=== PATIENT | male | born 1960 | race Hispanic/Latino ===

== ENCOUNTER 2017-07-25 13:57 | Emergency (ER) | payer BC, OTHER ==
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
[2017-07-25] MEDS ORDERED: IBUPROFEN 400 MG TAB ONE (16:53)
[2017-07-25] MEDS ORDERED: HYDROCODONE/APAP 7.5/325 MG TAB ONE (16:53)
== END 2017-07-25 17:03 | disposition home or self-care (01) ==
LOC: ER 13:57
DX: S43.122A Dislocation of left acromioclavicular joint, 100%-200% displacement, initial encounter (principal); V28.0XXA Motorcycle driver injured in noncollision transport accident in nontraffic accident, initial encounter
CPT/HCPCS: 99284

== ENCOUNTER 2022-11-26 10:52 | Emergency (ER) | payer OTHER ==
--- OUTSIDE RECORDS SUMMARY | 2022-11-26 10:55 | XMS REPORT | Continuity of Care Document ---
:1960 [facility] t Address [address] [facility] [address] [place] [address] Care Team Providers Name Role Phone Samuel Hollins Primary Care Physician Brennen RIVERS, Julia Attending Clinician HAM JOEL Attending Clinician Unavailable Abebe Ortega MD Attending Clinician Ham Joel DO Attending Clinician HAM JOEL Admitting Clinician Unavailable Ham Joel DO Admitting Clinician Payers Payer Name Policy Type Policy Number Effective Date Expiration Date S ource Problems Condition Condition Condition Status Onset Resolution Last Treating Co mments Source Name Details Category Date Date Treatment Clinician Date Stage 3 Stage 3 Disease Active Univers chronic chronic 11-21 ity of kidney kidney 00:00: [place] disease disease 00 Medical Branch Elevated Elevated Disease Active Unive rs LFTs LFTs 11-20 ity of 00:00: [place] 00 Medical Branch LBBB (left LBBB (left Disease Active U nivers bundle bundle 11-20 ity of branch branch 00:00: [place] block) block) 00 Medical Branch Dyslipidem Dyslipidem Disease Active U nivers ia ia 11-20 ity of 00:00: [place] 00 Medical Branch Family Family Disease Active Univers history of history of 11-20 [place] of premature premature [place] CAD CAD 00 [place] Elevated Elevated Disease Active Unive rs brain brain 11-20 ity of natriure[place] nat[place]ureti [place] peptide c peptide 00 Medi josué (BNP) (BNP) Branch level level Generalize Generalize Disease Active U nivers d d 11-19 [place] of abdominal abdominal 00[place] pain [facility] Allergies, Adverse Reactions, Alerts Allergy Allergy Status Severity Reaction(s) Onset Inactive Treating Comm ents Source Name Type Date Date Clinician NO KNOWN Drug Active Univers ALLERGIE Class ity of [facility] Social History Social Habit Start Date Stop Date Quantity Comments Source Gender identity Universit y [facility] Sexual orientation Univer sity of [facility] History of Social 2022-11-20 2022-11-20 Univers ity of function 00:00:00 00:00:00 [facility] Tobacco use and 2022-11-19 2022-11-19 Smokeless Universit y of exposure 00:00:00 00:00:00 tobacco non-user [facility] Sex Assigned At [birth year] Universit y of 00:00:00 00:00:00 [facility] Smoking Status Start Date Stop Date Source Never smoked tobacco [facility] Medications Ordered Filled Start Stop Current Ordering Indication Dosage Frequency Signature Comments Components Source Medication Medication Date Date Medication? Clinician (SIG) Name Name furosemide Yes 20mg 20 mg, Unive rs (LASIX) - Oral, ity of tablet 20 14:00: DAILY, [place] mg 00 First dose Medical on [facility] 11/22/22 at 0900, Until Discontinu ed, Routine furosemide 2022- Yes [id number] 20mg Take 1 Univers 20 mg 11-22- tablet by ity of tablet 00:00: 04:59 mouth in [place] 00 :00 [facility] for 30 days. furosemide 2022- Yes [id number] 20mg Take 1 Univers 20 mg -23 12- tablet by ity of tablet 00:00: 04:59 mouth in [place] 00 :00 [facility] for 30 days. furosemide 2022- No [id number] 20mg Take 1 Univers 20 mg -22 11- tablet by ity of tablet 00:00: 00:00 mouth in [place] 00 :00 [facility] for 30 days. pantoprazol Yes 40mg 40 mg, Univ ers e 11-21 Oral, ity of (PROTONIX) 20:00: DAILY, [place] EC tablet 00 First dose Medi josué 40 mg on [facility] 11/21/22 at 1500, Until Discontinu ed, Routine atorvastati 2022- No 10mg Take 1 Uni vers n 10 mg 11-21 tablet by ity of tablet 17:04: 00:00 mouth at [place] 09 :00 bedtime. Medical Branch docusate Yes 100mg 100 mg, Unive rs (COLACE) 11-21 Oral, ity of capsule 100 14:00: [place] 00 First dose Medical on [facility] Branch 11/21/22 at 0900, Until Discontinu ed, Routine lactulose Yes 15mL 15 mL, Univer s (CEPHULAC) 11-21 Oral, ity of solution 15 12:26: BIDPRN, Jose as mL 38 Starting Medical on [facility] Branch 11/21/22 at 0726, Until Discontinu ed, Routine, Constipati on pantoprazol 2022- Yes [id number] 40mg Take 1 Univers e 40 mg EC 11-21 tablet by ity of tablet 00:00: 04:59 mouth in [place] 00 :00 the Medical morning Branch for 30 days. pantoprazol 2022- Yes [id number] 40mg Take 1 Univers e 40 mg EC 11-21 tablet by ity of tablet 00:00: 04:59 mouth in [place] 00 :00 the Medical morning Branch for 30 days. pantoprazol 2022- No [id number] 40mg Take 1 Univers e 40 mg EC 11-21 tablet by ity of tablet 00:00: 00:00 mouth in [place] 00 :00 the Medical morning Branch for 30 days. furosemide 2022- No 40mg 40 mg, Univ ers (LASIX) 11-20 Slow IV ity of injection 22:30: 14:35 Push, BID [place] 40 mg 00 :01 MEALS, Medical First dose Branch on Wed11/20/22 at 1730, Until Discontinu ed, Routine gadobenate 2022- No [id number] .2mL/kg 12.22 mL Univers dimeglumine 7-21 07-21 (0.2 mL/kg i ty of (MULTIHANCE 14:30: 14:30 ?61.1 kg), [place] -20 mL) 00 :00 Intravenou Medica l injection s, ONCE, 1 Bran ch 12.22 mL dose, On Wed11/20/22 at 0930, Routine aspirin 2022-0 Yes 81mg 81 mg, Univers chewable 11-20 Oral, ity of tablet 81 14:00: DAILY, [place] mg 00 First dose Medical on Wed Branch 11/20/22 at 0900, Until Discontinu ed, Routine glucagon 2022-0 Yes 1mg 1 mg, Univers (GLUCAGEN 11-19 Intramuscu ity of DIAGNOSTIC 23:53: lar, PRN, [place] KIT) 08 Starting Medical injection 1 on [place] Branch 11/19/22 at 1853, Until Discontinu ed, MINOO, Blood Glucose < or = 70 mg/dL and patient is NPO, unable to swallow or has mental changes. dextrose 50 2022-0 Yes 25mL 25 mL, Univ ers % in water 11-19 Slow IV ity of (D50W) 23:53: Push, PRN, [place] injection 08 Starting Medica l 25 mL on [place] Branch 11/19/22 at 1853, Until Discontinu ed, MINOO, Blood Glucose < or = 70 mg/dL and patient is NPO, unable to swallow or has mental status changes. ondansetron 0 Yes 4mg 4 mg, Slow Univers (ZOFRAN 7-20 IV Push, ity of (PF)) 23:38: Q6HPRN, [place] injection 4 20 Nausea and Me dical mg Vomiting Branch (N/V), Starting on Wed11/19/22 at 1838
Do ses of ondansetro n 16 mg and above need to be administer ed via IV piggyback. For Dose >=24mg ECG monitoring is advisable.
enoxaparin 2022-0 Yes 40mg 40 mg, Unive rs (LOVENOX) -20 Subcutaneo ity of injection 22:00: [place], [place]ILY, [place] 40 mg 00 First dose Medical on [place] Branch 11/19/22 at 1700, Until Discontinu ed, Routine acetaminoph Yes 650mg 650 mg, Un mónica en 11-19 Oral, ity of (TYLENOL) 21:52: Q6HPRN, [place] tablet 650 12 Starting Medic al mg on [place] Branch 11/19/22 at 1652, Until Discontinu ed, Routine, Pain (scale 1-3) iopamidol 2022- No [id number] 65mL 65 mL, Univers (ISOVUE 11-19 Intravenou ity o f 370-500 mL) 20:49: 20:49 s, ONCE, 1 [place] injection 00 :00 dose, On Medica l 65 mL [place] Branch 11/19/22 at 1600, Routine NaCl 0.9% No 1000mL at 999 Uni vers (NS) bolus 11-19 mL/hr, ity of infusion 20:00: 22:23 1,000 mL, Jose as 1,000 mL 00 :00 IV Medical Infusion, Branch ONCE, 1 dose, On [place]n 11/19/22 at 1500, STAT Vital Signs Vital Name Observation Time Observation Value Comments Source Systolic blood 2022-11-22 00:07:00 144 mm[Hg] Univer sity of pressure [facility] Diastolic blood 2022-11-22 00:07:00 79 mm[Hg] [facility] Heart rate 2022-11-22 00:07:00 50 /min [facility] Body temperature 2022-11-22 00:06:00 36.72 [facility] Respiratory rate 2022-11-22 00:06:00 [facility] Oxygen saturation in 2022-11-22 00:06:00 99 /min [facility] Arterial blood by [facility] Pulse oximetry Branch Body weight 2022-11-20 08:22:00 61.1 kg [facility] BMI 2022-11-20 08:22:00 22.42 kg/m2 [facility] Body height 2022-11-19 23:25:00 165.1 cm [facility] Procedures Procedure Date / Time Performing Clinician Source Performed N-TERMINAL PRO-BNP 2022-11-21 09:48:00 [place] 2022-11-21 09:48:00 Zulay Thomas [facility] MAGNESIUM 2022-11-21 09:[facility] 2022-11-21 09:48:00 Ynes Bhargav [facility] ([id number]) (ALB,T.PRO,BILI Medical Branch T,BU/BC,ALT,AST,ALK PHOS) BASIC METABOLIC PANEL 2022-11-21 09:48:00 Zulay Thomas [facility] (NA, K, CL, CO2, GLUCOSE, Medica l Branch BUN, CREATININE, CA) CBC WITH DIFF 2022-11-21 09:48:[facility] (AUTOMATED) 2022-11-20 21:28:00 Ham Joel [facility] TRANSTHORACIC ECHO (TTE) 2022-11-20 18:26:00 Ham Joel [facility] POCT GLUCOSE (AUTOMATED) 2022-11-20 16:50:00 Ham Joel [facility] POCT GLUCOSE (AUTOMATED) 2022-11-20 12:47:00 Ham Joel [facility] LIPID PANEL ([id number])(TOTAL 2022-11-20 11:14:00 Edith Alcantar [facility] TRIGLYCERIDES, HDL) ALPHA FETOPROTEIN 2022-11-20 11:14:00 Edith Alcantar [facility] CBC WITH DIFF 2022-11-20 11:14:[address] [facility] N-TERMINAL PRO-BNP 2022-11-20 11:14:00 Br[facility] [place] [facility] CANCER ANTIGEN-GI (CA 2022-11-20 11:14:00 Edith Alcantar [facility] 19-9) Medical Branch LIPASE 2022-11-20 11:14:[address] [facility] THYROID STIMULATING 2022-11-20 11:14:00 Brisa Horner [facility] [place] HORMONE [facility] COMP. METABOLIC PANEL 2022-11-20 11:14:00 Edith Alcantar [facility] ([id number]) Medical Branch TROPONIN I 2022-11-20 08:27:00 Ham Joel [facility] POCT GLUCOSE (AUTOMATED) 2022-11-20 02:49:00 Ham Joel [facility] TROPONIN I 2022-11-20 00:38:00 Ham Joel [facility] POCT GLUCOSE (AUTOMATED) 2022-11-19 23:50:00 Ham Joel [facility] CT ABDOMEN PELVIS W 2022-11-19 20:58:00 Abebe Ortega [facility] CONTRAST [facility] XR CHEST 1 VW 2022-11-19 20:32:00 Abebe Ortega [facility] HB ECG ROUTINE & RHYTHM 2022-11-19 20:05:31 Abebe Ortega [facility] STRIP [facility] COVID-19 (ID NOW RAPID 2022-11-19 20:00:00 Abebe Ortega [facility] TESTING) Medical Branch LAB ONLY COVID 2022-11-19 20:00:00 Abebe Ortega [facility] URINALYSIS 2022-11-19 20:00:00 Abebe Ortega [facility] N-TERMINAL PRO-BNP 2022-11-19 19:50:00 Abebe Ortega [facility] Medical Branch LIPASE 2022-11-19 19:50:00 Abebe Ortega [facility] TROPONIN I 2022-11-19 19:50:00 Abebe Ortega [facility] COMP. METABOLIC PANEL 2022-11-19 19:50:00 Abebe Ortega [facility] ([id number]) Medical Branch CBC WITH DIFF 2022-11-19 19:50:00 Abebe Ortega [facility] GLYCOSYLATED HEMOGLOBIN 2022-11-19 19:50:00 Ham Joel [facility] (A1C) [facility] NOTICE OF PRIVACY 2022-11-19 18:59:35 Doctor Unassigned, [facility] PRACTICES [facility] CONSENT/REFUSAL FOR 2022-11-19 18:57:40 Doctor Unassigned, [facility] DIAGNOSIS AND TREATMENT [facility] Encounters Start End Encounter Admission Attending Care Care Encounter Source Date/Time Date/Time Type Type Clinicians Facility Department ID 2022-11-23 2022-11-23 Telephone Brennen [facility] [id number] [facility] 00:00:00 00:00:00 [id number] [id number] Va dical [facility] 059 [facility] 2022-11-19 2022-11-21 Outpatient X MARYCRUZ [facility] [id number] 818 [facility] 14:06:00 20:20:00 HAM [facility] 2022-11-19 2022-11-21 Emergency Abebe Ortega [facility] [id number] [facility] 14:06:00 20:20:00 Ham Joel [id number] [facility] [id number] [facility] [id number] [address] Results Test Description Test Time Test Comments Results Result Comments Source POCT GLUCOSE (AUTOMATED) 2022-11-20 21:29:31 Test Item Value Reference Range Interpretation Comme nts POCT GLU (test code = 3151923567) 77 mg/dL 70-110 Lab Interpretation (test code = 76829-5) Normal [facility] [id number] 16:52:19 Test Item Value Reference Range Interpretation Comments AFP (test code = 1.4 ng/mL <=7.5 [id number]) ABDELRAHMAN (test code = ABDELRAHMAN) Biotin has been reported to cause a negative bias, interpret results relative to patient's use of biotin. Lab Interpretation (test Normal code = 39989-8) [facility]2022-11-20 16:50:51 Test Item Value Reference Range Interpretation Comments POCT GLU (test code = 9048866043) 81 mg/dL 70-110 Lab Interpretation (test code = Normal 07136-8) [facility] ANTIGEN-GI (CA 19-9)2022-11-20 16:17:00 Test Item Value Reference Range Interpretation Comments CA 19-9 (test code = 21.5 U/mL 0.0-35.0 4629229732) ABDELRAHMAN (test code = ABDELRAHMAN) Biotin has been reported to cause a negative bias, interpret results relative to patient's use of biotin. Lab Interpretation (test Normal code = 00061-3) [facility] STIMULATING [id number] 13:36:54 Test Item Value Reference Range Interpretation Comments TSH (test code = 2.86 See_Comment [Automated message] [id number]) The system [employer] generated this result transmitted ref erence range: 0.45 - 4 .70 mIU/L. The refe rence range was not u sed to interpret this result as normal/abnor mal. Lab Interpretation (test Normal code = 66996-3) [facility] [id number] 13:15:14 Test Item Value Reference Range Interpretation Comments NT-proBNP (test code = 2730 pg/mL <=125 H 53623-5) ABDELRAHMAN (test code = ABDELRAHMAN) Positive: Heart Failure Likely Lab Interpretation (test Abnormal code = 94724-8) [facility])2022-11-20 12:48:46 Test Item Value Reference Range Interpretation Comments POCT GLU (test code = 0022692167) 77 mg/dL 70-110 Lab Interpretation (test code = Normal 53245-1) [facility] ([id number])(TOTAL CHOLESTEROL, TRIGLYCERIDES, HDL)2022-11-20 12:02:30 Test Item Value Reference Range Interpretation Comments CHOL (test code = 4413829970) 111 mg/dL 120-200 L HDL (test code = 9396734501) 17 mg/dL >=40 L HDLC RATIO (test code = 7691409169) 6.5 <=5.0 H TRIG (test code = 0347235631) 121 mg/dL 30-170 LDL CHOL (test code = 55837-8) 70 mg/dL <=160 VLDL (test code = 6313743166) 24 mg/dL 5-60 Lab Interpretation (test code = Abnormal 00338-1) [facility] MET[facility]OLIC PANEL (80999)2022-11-20 12:02:10 Test Item Value Reference Range Interpretation Comments NA (test code = 140 mmol/L 135-145 0096054337) K (test code = 4.4 mmol/L 3.5-5.0 6970725666) CL (test code = 108 mmol/L 98-108 8436311776) CO2 TOTAL (test code = 26 mmol/L 23-31 4362231122) AGAP (test code = 6 2-16 0207354079) BUN (test code = 25 mg/dL 7-23 H 9623765591) GLUCOSE (test code = 89 mg/dL 70-110 0227931850) CREATININE (test code = 1.55 mg/dL 0.60-1.25 H 9868225533) TOTAL BILI (test code = 0.4 mg/dL 0.1-1.3 1367462846) CALCIUM (test code = 8.6 mg/dL 8.6-10.6 9619929696) T PROTEIN (test code = 6.8 g/dL 6.3-8.2 1764880735) ALBUMIN (test code = 3.0 g/dL 3.5-5.0 L 6653787314) ALK PHOS (test code = 112 U/L 34-122 3409555745) ALTv (test code = 52 U/L 5-50 H 1742-6) AST(SGOT) (test code = 42 U/L 13-40 H 2071337544) eGFR (test code = 45.8 mL/min/1.73m2 4356295821) ABDELRAHMAN (test code = ABDELRAHMAN) Association of Glomerular Filtration Rate (GFR) and Staging of Kidney Disease* + --+ --+ ------+| GFR (mL/min/1.73 m2) ?| With Kidney Damage ?| ?Without Kidney Damage+ --------+ --------+ +| ?>90 ?| ?Stage one ?| ? Normal ?+ ---+ ---+ -------+| ?60-89 ?| ?Stage two ?| ? Decreased GFR ? + --+ --+ ------+| ?30-59 ?| ?Stage three ?| ? Stage three ? + --+ --+ ------+| ?15-29 ?| ?Stage four ? | ? Stage four ?+ ---+ ---+ -------+| ?<15 (or dialysis) ? ?| ?Stage five ? | ? Stage five ?+ ---+ ---+ -------+ *Each stage assumes the associated GFR level has been in effect for at least three months. ?Stages 1 to 5, with or without kidney disease, indicate chronic kidney disease. Notes: Determination of stages one and two (with eGFR >59mL/min/1.73 m2) requires estimation of kidney damage for at least three months as defined by structural or functional abnormalities of the kidney, manifested by either:Pathological abnormalities or Markers of kidney damage (including abnormalities in the composition of the blood or urine or abnormalities in imaging tests). Lab Interpretation Abnormal (test code = 85380-9) [facility] 12:01:45 Test Item Value Reference Range Interpretation Comments LIPASE (test code = 5834268022) 498 U/L 0-220 H Lab Interpretation (test code = Abnormal 03800-9) [facility] WITH [id number] 11:50:27 Test Item Value Reference Range Interpretation Comments WBC (test code = 11.54 See_Comment H [Automated 6690-2) message] The sy stem which generated this result transmitted reference range : 4.20 - 10.70 10*3/?L. The reference range was not used to interpret this result as normal/abnormal . RBC (test code = 3.45 See_Comment L [Automated 369-8) message] The sy stem which generated this result transmitted reference range : 4.26 - 5.52 10*6/?L. The reference range was not used to interpret this result as normal/abnormal . HGB (test code = 11.3 g/dL 12.2-16.4 L 718-7) HCT (test code = 32.9 % 38.4-49.3 L 4544-3) MCV (test code = 95.4 fL 81.7-95.6 787-2) MCH (test code = 32.8 pg 26.1-32.7 H 785-6) MCHC (test code = 34.3 g/dL 31.2-35.0 786-4) RDW-SD (test code = 48.1 fL 38.5-51.6 64611-2) RDW-CV (test code = 13.6 % 12.1-15.4 788-0) PLT (test code = 396 See_Comment H [Automated 777-3) message] The sy stem which generated this result transmitted reference range : 150 - 328 10*3/ ?L. The reference r raymon was not used to interpret this result as normal/abnormal . MPV (test code = 10.1 fL 9.8-13.0 46506-6) NRBC/100 WBC (test 0.0 See_Comment [Automat ed code = 1031702964) message] The system which generated this result transmitted reference range : 0.0 - 10.0 /100 WBCs. The refer ence range was not u sed to interpret th is result as normal/abnormal . NRBC x10^3 (test code See_Comment [Auto mated = 6888890971) message] The s ystem which generated this result transmitted reference range : 10*3/?L. The reference range was not used to interpret this result as normal/abnormal . GRAN MAT (NEUT) % 76.3 % (test code = 770-8) IMM GRAN % (test code 0.30 % = 1272730163) LYMPH % (test code = 10.7 % 736-9) MONO % (test code = 9.3 % 5905-5) EOS % (test code = 2.5 % 713-8) BASO % (test code = 0.9 % 706-2) GRAN MAT x10^3(ANC) 8.80 10*3/uL 1.99-6.95 H (test code = 3049993944) IMM GRAN x10^3 (test 0.04 10*3/uL 0.00-0.06 code = 0340293845) LYMPH x10^3 (test code 1.24 10*3/uL 1.09-3.23 = 731-0) MONO x10^3 (test code 1.07 10*3/uL 0.36-1.02 H = 742-7) EOS x10^3 (test code = 0.29 10*3/uL 0.06-0.53 711-2) BASO x10^3 (test code 0.10 10*3/uL 0.01-0.09 H = 704-7) Lab Interpretation Abnormal (test code = 09476-7) [facility] GLUCOSE (AUTOMATED)2022-11-20 02:50:44 Test Item Value Reference Range Interpretation Comments POCT GLU (test code = 6323033101) 125 mg/dL 70-110 H Lab Interpretation (test code = Abnormal 26056-0) [facility] [id number] 02:00:05 Test Item Value Reference Range Interpretation Comments TROPONIN I (test code = 0.012 ng/mL <=0.034 3708019822) ABDELRAHAMN (test code = ABDELRAHMAN) Reference (Normal) Range (defined by the 99th percentile reference limit): <= 0.034 ng/mL Note: Cardiac troponin begins to rise 3-4 hours after the onset of ischemia. Repeat in 4-6 hours if the sample was drawn within 3-4 hours of the onset of the symptom and found normal. Diagnosis of myocardial injury is made with acute changes in cTn concentrations with at least one serial sample above the 99th percentile upper reference limit (URL), taken together with the patient's clinical presentation. Biotin has been reported to cause a negative bias, interpret results relative to patient's use of biotin. Lab Interpretation Normal (test code = 97590-6) [facility] GLUCOSE (AUTOMATED)2022-11-19 23:51:06 Test Item Value Reference Range Interpretation Comments POCT GLU (test code = 5356877806) 68 mg/dL 70-110 L Lab Interpretation (test code = Abnormal 73159-6) [facility] Consult Notes Date/Time Note Provider Source 2022-11-20 07:36:36-00:00 Associated Order(s): CONSULT CARDIOLOG Y [facility] - Health Formatting of this note is different from the or iginal. [facility] Cardiology Consult Note Patient: Génesis Hill Date of : 1960 Date of service: 11/20/2022 Primary Care Physician: Samuel Arevalo CHIEF COMPLAINT: Chief Complaint Patient presents with Abdominal Pain HISTORY OF PRESENT ILLNESS: Génesis Hill is a 62 yea r old male presented to the ER for evaluation for abdominal pain. History from patient. Patient seen and examined in the room. Pertinent cardiac related history reviewed from chart Presented to ER with complaints of abdominal ramesh n. Patient had lab work-up done by his primary care provider, Dr. Arevalo. Patient was found to have mildly elevated liver function testing. Patient was also found to have generalized weakness and abdominal discomfort along with some w eight loss and anorexia that has been worsening over the last few weeks. In the emergency room, patient was found to have an elevated BNP level. Patient denies history of alcohol abuse. SMILEY which class II. No chest pain at rest. No PN D or orthopnea. No pedal edema. No exertional palpitations or palpitations at rest. No syncopal attacks. Previous Cardiac Studies: IMAGING - I personally reviewed, pertinent resul ts as below: Relevant cardiac labs reviewed. Labs dated 11/20/2022 reviewe d from the cardiac standpoint shows potassium stable at 4.4, creatinine mildly elevated 1.55, NT-proBNP elevated at 2130, LFTs elevated with along with elevated lipase. Hemoglobin mildly reduced bu t stable 11.3, platelet count elevated mildly at 396. EKG dated 11/19/2022 3 shows sinus rhythm,, left bundle branch block pattern. No prior EKG available for comparison. Chest x-ray dated 11/19/2022 reviewed no evidence of any heart failure pattern. CT abdomen shows evidence of vascular calcification in the abdominal aortic vessels. PAST MEDICAL HISTORY History reviewed. No pertinent past medical hist ory. History reviewed. No pertinent surgical history. No family history on file. SOCIAL HISTORY Social History Socioeconomic History Marital status: Tobacco Use Smoking status: Never Smokeless tobacco: Never ALLERGIES No Known Allergies MEDICATIONS Current Discharge Medication List STOP taking these medications atorvastatin 10 mg tablet Comments: Reason for Stopping: Current Facility-Administered Medications: acetaminophen (TYLENOL) tab let 650 mg, 650 mg, Oral, Q6HPRN, Ham Joel DO aspirin chewable tablet 81 mg, 81 mg, Oral, DIANE LY, Ham Joel DO dextrose 50 % in water (D50 W) injection 25 mL, 25 mL, Slow IV Push, PRN, Ham Joel DO enoxaparin (LOVENOX) inject ion 40 mg, 40 mg, Subcutaneous, DAILY, Ham Joel DO, 40 mg at 11/19/22 1843 glucagon (GLUCAGEN DIAGNOST IC KIT) injection 1 mg, 1 mg, Intramuscular, PRN, Ham Joel DO ondansetron (ZOFRAN (PF)) i njection 4 mg, 4 mg, Slow IV Push, Q6HPRN, Ham Joel DO, 4 mg at 11/19/22 1843 Sliding Scale Insulin - Lis pro (HumaLOG), , Subcutaneous, TID MEALS+HS, Ham Joel DO REVIEW OF SYSTEMS: Comprehensive 10-system revi ew was conducted and were negative except for what's noted in the HPI. The following systems were reviewed: Constitutional, cardiovascular, respiratory, gastrointestinal, gen itourinary, musculoskeletal, neurologic, psychiatric, endocrinological, and hematological. PHYSICAL EXAMINATION: Vitals: 11/19/22 1825 11/19/22 1940 11/19/22 2332 11/20 0322 BP: 138/76 109/58 134/74 Pulse: 62 59 70 Resp: 16 16 18 Temp: 36.8 ?C (98.2 ?F) 36.9 ?C (98.5 ?F) TempSrc: SpO2: 98% 98% 95% Weight: 56.7 kg (125 lb) 61.1 kg (134 lb 11.2 oz ) Height: 1.651 m (5' 5") General: no apparent distress HEENT: normocephalic atraumatic Neck: supple, no lymphadenopathy, no bruits, no JVD Lungs: clear to auscultation bilaterally. No wheezes or rhonchi. No increased work of breathing. Cardio: Regular rate and rhythm, S1&S2 normal, n o murmurs, rubs or gallops Abdomen: soft; non-tender; non-distended; normoa ctive bowel sounds. : not examined Rectal: not examined Extremities: no clubbing, cyanosis, or edema. Skin: no rashes, no visible lesions. Neuro: no gross focal deficits LABS - Reviewed pertinent labs as below: CBC BMP PT/INR WBC (10*3/?L) Date Value 11/20/2022 11.54 (H) NA (mmol/L) Date Value 11/20/2022 140 No results found for: "PT" PLT (10*3/?L) Date Value 11/20/2022 396 (H) K (mmol/L) Date Value 11/20/2022 4.4 No results found for: "PTINR" HGB (g/dL) Date Value 11/20/2022 11.3 (L) BUN (mg/dL) Date Value 11/20/2022 25 (H) HCT (%) Date Value 11/20/2022 32.9 (L) CREATININE (mg/dL) Date Value 11/20/2022 1.55 (H) LIPID PROFILE GLUCOSE (mg/dL) Date Value 11/20/2022 89 CHOL (mg/dL) Date Value 11/20/2022 111 (L) TSH LDL CHOL (mg/dL) Date Value 11/20/2022 70 No results found for: "TSH" CARDIAC ENZYMES HDL (mg/dL) Date Value 11/20/2022 17 (L) No results found for: "CK" TRIG (mg/dL) Date Value 11/20/2022 121 LFTs No results found for: "CKMB" AST(SGOT) (U/L) Date Value 11/20/2022 42 (H) TROPONIN I (ng/mL) Date Value 11/20/2022 0.013 ALTv (U/L) Date Value 11/20/2022 52 (H) No results found for: "BNP" LDL CHOL (mg/dL) Date Value 11/20/2022 70 Recent Labs 11/20/22 0327 TROPNI 0.013 Recent Labs 11/20/22 0614 TRIG 121 LDL CHOL (mg/dL) Date Value 11/20/2022 70 NT-proBNP (pg/mL) Date Value 11/19/2022 2,420 (H) ASSESSMENT/PLAN Principal Problem: Generalized abdominal pain Active Problems: Elevated LFTs LBBB (left bundle branch block) Dyslipidemia Family history of premature CAD Elevated brain natriuretic peptide (BNP) level Elevated NT-proBNP: Serial troponins x2 were negative. Recommend Echo to assess to EF and wall motion c hanges. Continue with IV Lasix 40 twice daily. Repeat NT -proBNP in a.m. tomorrow. Telemetry reviewed. No signi ficant arrhythmias noted. Continue telemetry monitoring If echocardiogram shows pres erved LV systolic function, then will plan for outpatient Lexiscan stress test. If echo shows drop in LVEF, then would need a coronary angiogram based upon the findings of the MRI abdomen. Relevant cardiac labs reviewed. Labs dated 11/20/2022 reviewe d from the cardiac standpoint shows potassium stable at 4.4, creatinine mildly elevated 1.55, NT-proBNP elevated at 2130, LFTs elevated with along with elevated lipase. Hemoglobin mildly reduced bu t stable 11.3, platelet count elevated mildly at 396. EKG dated 11/19/2022 3 shows sinus rhythm,, left bundle branch block pattern. No prior EKG available for comparison. Chest x-ray dated 11/19/2022 reviewed no evidence of any heart failure pattern. CT abdomen shows evidence of vascular calcification in the abdominal aortic vessels. Recent Labs 11/19/22 1938 11/20/22 0327 TROPNI 0.012 0.013 NT-proBNP (pg/mL) Date Value 11/19/2022 2,420 (H) New onset LBBB no prior EKG available for compar rafi. Denies history of any hypertension. If echocardiogram shows pres erved LV systolic function, then will plan for outpatient Lexiscan stress test. If echo shows drop in LVEF, then would need a coronary angiogram based upon the findings of the MRI abdomen. Dyslipidemia/family history of premature CAD: Home dose of Lipitor 10 mg daily. Currently on hold due to elevated LFTs. Goal LDL less than 70. LDL CHOL (mg/dL) Date Value 11/20/2022 70 Last Two A1C Results ([facility]/LC, POCT, [facility]) Recent Labs 11/19/22 1450 HGBA1C 5.2 Elevated LFTs: Rx/work-up as per primary team. My diagnostic impression and treatment plans were discussed at length with the patient and family member present. Thank you for allowing us to participate in the care of Génesis Hill. If you have any questions or concerns please feel free to call our office at [phone]. I would be happy to be of further assistance for Génesis Hill wellbeing. Voice recognition software [employer] as been used to create portions of this document. An attempt to proofread has been made to minimize errors. Please do not hesitate to call with any questions. Franklin Horner MD [employer], Division of Cardiology [facility] History and Physical Notes Date/Time Note Provider Source 2022-11-19 Formatting of this note is different fro m the original. IM-INTERNAL MEDICINE [facility] 23:14:24-00:00 [facility] Hospitalist Admission H&P STAFF Date of Service: 11/19/2022 CHIEF COMPLAINT: Abdominal pain; weakness; CP HISTORY OF PRESENT ILLNESS Génesis Hill is a 62 yea r old male who presents with complaints of abdominal pain. Patient had lab work-up done by his primary care provider, Dr. Arevalo. Patient was found to have mildly elevated lyle er function testing. Patient was advised to stop taking Lipitor on Sundays. Patient was also found to have generalized weakness and abdominal discomfort along with some weight loss and anorexia that has been worsening over the las t few weeks. Patient's has been persistent about trying to figure out what is going on with him. Patient was going to order a CT scan of the abdomen. This was supposed t o be done as an outpatient [facility] because of insurance purposes they were not able to get this done in [place]. Patient's primary care provider recommended patient get admitted but since the [facility] not take [facility] insurance he came to [facility] for admission. In the emergency room, patient was found to have an elevated BNP level. Patient's lipase was also elevated. Once again his liver function te sting is mildly elevated as well. Patient denies history of alcohol abuse. Patient does not have gallstones on CT imaging. We will check patient's lipid profile and monitor p atient's triglycerides. MRI imaging of the pancreas as well as abdominal ultrasound and echocardiogram will be obtained. Further work-up can be done as an outpatient. PAST MEDICAL HISTORY Hyperlipidemia PAST SURGICAL HISTORY History reviewed. No pertinent surgical history. ALLERGIES No Known Allergies MEDICATIONS Current home medication list reviewed: Current Discharge Medication List STOP taking these medications atorvastatin 10 mg tablet Comments: Reason for Stopping: FAMILY HISTORY No family history on file. SOCIAL HISTORY Social History Socioeconomic History Marital status: Tobacco Use Smoking status: Never Smokeless tobacco: Never REVIEW OF SYSTEMS 10 systems negative except per HPI PHYSICAL EXAMINATION BP 138/76 | Pulse 62 | Temp 36.8 ?C (98.2 ?F) | Resp 16 | Ht 1.651 m (5' 5") | Wt 56.7 kg (125 lb) | SpO2 98% | BMI 20.80 kg/m? General: No acute distress HEENT: Normal oral mucosa, anicteric sclerae, NC AT Cardiovascular: RRR Lungs: Symmetric expansion, CTAB Abdomen: Soft, NTND Musculoskeletal: No synovitis, normal muscle mas s Genitourinary: Normal Skin: No rash, lesions Neuro: AAOx3, no focal deficits Psych: Normal affect LABS - reviewed pertinent labs as below: CBC BMP PT/INR WBC (10*3/?L) Date Value 11/19/2022 11.88 (H) NA (mmol/L) Date Value 11/19/2022 139 No results found for: "PT" RBC (10*6/?L) Date Value 11/19/2022 3.46 (L) K (mmol/L) Date Value 11/19/2022 4.1 No results found for: "PTINR" PLT (10*3/?L) Date Value 11/19/2022 454 (H) CALCIUM (mg/dL) Date Value 11/19/2022 8.9 HGB (g/dL) Date Value 11/19/2022 11.0 (L) CL (mmol/L) Date Value 11/19/2022 104 aPTT HCT (%) Date Value 11/19/2022 32.3 (L) BUN (mg/dL) Date Value 11/19/2022 23 No results found for: "APTTPAT" CREATININE (mg/dL) Date Value 11/19/2022 1.57 (H) IMAGING - reviewed, pertinent results as below: Hospital Encounter on 11/19/22 CT ABDOMEN PELVIS W CONTRAST Narrative ORDERING PROVIDER: ABEBE ORTEGA HISTORY: Abdominal distension TECHNIQUE: Contiguous axial CT images of the abd omen and pelvis performed after administration of IV contrast. Coronal and sagittal reformats generated. CT performed according to ALARA (as l ow as reasonably achievable) principles. TECHNICAL LIMITATIONS: None. COMPARISON: None. FINDINGS: Included lung bases: Mild bibasilar linear atele ctasis/scar with superimposed dependent atelectasis. No basilar c onsolidation or pleural effusion. Normal heart size. Trace inferior vidal cardial fluid. Liver: Unremarkable. Gallbladder and Bile Ducts: Unremarkable gallbla dder. No biliary ductal dilation. Pancreas: Unremarkable CT appearance. Spleen: Unremarkable. Adrenals: No discrete nodule. Kidneys and Ureters: Unremarkable kidneys. No ur eteral stones or hydroureteronephrosis. GI Tract: Unremarkable appearance of the stomach , small and large bowel. Unremarkable appendix. Pelvis: Apparent mild circumferential urinary bl adder wall thickening is attributed to underdistension. Prostate is not s ignificantly enlarged and contains several coarse calcifications. Mesentery/Peritoneum: No free air. Fluid: Trace pelvic free fluid is nonspecific bu t considered an unusual finding for a male. Lymph nodes: No pathologic adenopathy. Vasculature: Scattered atherosclerotic vascular calcifications. No abdominal aortic aneurysm. Bones: No acute osseous abnormality. Chronic cinda ateral L5 pars defects with grade 1 spondylolisthesis. Impression 1. No acute process identified. No bowel obstru ction. 2. Atherosclerosis. 3. Chronic L5 pars defects with grade 1 spondylo listhesis. RL: [id number] Electronically signed by Jose Sims DO at 023 4:34 PM XR CHEST 1 VW Narrative Indication: chest pain Comparison: None RL: [id number] ORDERING PHYSICIAN: ABEBE ORTEGA TECHNIQUE: Single view of the chest. FINDINGS: The lungs are clear. Cardiomediastinal silhouette is within normal limits. No pneumothorax. The bony structu res are intact. Impression 1. No acute cardiopulmonary disease. Electronically signed by Sharan Wilson at 2022 4:18 PM ASSESSMENT: 1. Abdominal pain 2. Generalized weakness 3. Weight loss 4. Elevated lipase level 5. Elevated BNP 6. Mildly elevated LFTs PLAN: 1. MRI of the abdomen 2. Abdominal ultrasound 3. Repeat lipase level along with CA 19-9 tumor markers 4. Echocardiogram 5. Hepatitis profile and alpha-fetoprotein level 6. GI and DVT prophylaxis DVT prophylaxis: enoxaparin Stress ulcer prophylaxis: pantoprazole Code status: full Advanced Care Planning (Z71.89) Above assessment and plan di scussed at length with patient, patient expressed full understanding. Questions and concerned addressed. Surrogate decision maker: Level of care expected after discharge: home Time spent: 2 minutes discussing the advanced ca re plan Smoking Cessation: (Z71.6) Tobacco user?: no Patient will require inpatie nt stay of 2 midnights or more given high risk of morbidity and mortality. [place] [employer] was verified during stay Edith Alcantar MD Electronically signed by Edith Alcantar MD a t 11/20/2022 5:38 AM CDT Notes Date/Time Note Provider Source 2022-11-23 [facility] 08:28:34-00:00 The patient was admitted to the hospital for left bundle branch block and heart failure. We will get Lexiscan nuclear stress test to assess ischemia. Electronically signed by Julia Hutton MD at 8:29 AM CDT 2022-11-21 Formatting of this note might be differe nt from the original. Corina Dawkins RN [facility] 17:09:14-00:00 Problem: Discharge Planning Goal: Adequate for discharge 11/21/20221708 by Corina Dawkins RN Outcome: Adequate for discharge 11/21/2022 1606 by Corina Dawkins RN Outcome: Progressing as expected Goal: Effective communication 11/21/20221708 by Corina Dawkins RN Outcome: Adequate for discharge 11/21/2022 1606 by Corina Dawkins RN Outcome: Progressing as expected Problem: Nausea/Vomiting Goal: Absence of nausea/vomiting 11/21/20221708 by Corina Dawkins RN Outcome: Adequate for discharge 11/21/2022 1606 by Corina Dawkins RN Outcome: Progressing as expected Problem: Venous Thromboembolism, (actual or risk of) Goal: Absence of venous thromboembolism (Risk) 11/21/20221708 by Corina Dawkins RN Outcome: Adequate for discharge 11/21/2022 1606 by Corina Dawkins RN Outcome: Progressing as expected Goal: Prevent further complications associated w ith VTE diagnosis (Actual) 11/21/20221708 by Corina Dawkins RN Outcome: Adequate for discharge 11/21/2022 1606 by Corina Dawkins RN Outcome: Progressing as expected Problem: Infection Risk Goal: Absence of infection 11/21/20221708 by Corina Dawkins RN Outcome: Adequate for discharge 11/21/2022 1606 by Corina Dawkins RN Outcome: Progressing as expected Problem: Glucose control Goal: Glucose level within specified parameters 11/21/20221708 by Corina Dawkins RN Outcome: Adequate for discharge 11/21/2022 1606 by Corina Dawkins RN Outcome: Progressing as expected Electronically signed by Corina Dawkins RN at 5:09 PM T 2022-11-21 [facility] 16:06:24-00:00 Problem: Discharge Planning Goal: Adequate for discharge Outcome: Progressing as expected Goal: Effective communication Outcome: Progressing as expected Problem: Nausea/Vomiting Goal: Absence of nausea/vomiting Outcome: Progressing as expected Problem: Venous Thromboembolism, (actual or risk of) Goal: Absence of venous thromboembolism (Risk) Outcome: Progressing as expected Goal: Prevent further complications associated w ith VTE diagnosis (Actual) Outcome: Progressing as expected Problem: Infection Risk Goal: Absence of infection Outcome: Progressing as expected Problem: Glucose control Goal: Glucose level within specified parameters Outcome: Progressing as expected Electronically signed by Corina Dawkins RN at 4:06 PM T 2022-11-21 Formatting of this note might be differe nt from the original. Carmelita Mcmillan RN [facility] 01:11:36-00:00 Problem: Discharge Planning Goal: Adequate for discharge Outcome: Progressing as expected Goal: Effective communication Outcome: Progressing as expected Problem: Nausea/Vomiting Goal: Absence of nausea/vomiting Outcome: Progressing as expected Problem: Venous Thromboembolism, (actual or risk of) Goal: Absence of venous thromboembolism (Risk) Outcome: Progressing as expected Goal: Prevent further complications associated w ith VTE diagnosis (Actual) Outcome: Progressing as expected Problem: Infection Risk Goal: Absence of infection Outcome: Progressing as expected Problem: Glucose control Goal: Glucose level within specified parameters Outcome: Progressing as expected T 2022-11-20 [facility] 18:48:46-00:00 Problem: Discharge Planning Goal: Adequate for discharge Outcome: Progressing as expected Goal: Effective communication Outcome: Progressing as expected Problem: Nausea/Vomiting Goal: Absence of nausea/vomiting Outcome: Progressing as expected Problem: Venous Thromboembolism, (actual or risk of) Goal: Absence of venous thromboembolism (Risk) Outcome: Progressing as expected Goal: Prevent further complications associated w ith VTE diagnosis (Actual) Outcome: Progressing as expected Problem: Infection Risk Goal: Absence of infection Outcome: Progressing as expected Problem: Glucose control Goal: Glucose level within specified parameters Outcome: Progressing as expected 2022-11-20 Formatting of this note might be differe nt from the original. Chiquita Foreman RN [facility] 03:08:57-00:00 Problem: Discharge Planning Goal: Adequate for discharge Outcome: Progressing as expected Goal: Effective communication Outcome: Progressing as expected Problem: Nausea/Vomiting Goal: Absence of nausea/vomiting Outcome: Progressing as expected Problem: Venous Thromboembolism, (actual or risk of) Goal: Absence of venous thromboembolism (Risk) Outcome: Progressing as expected Goal: Prevent further complications associated w ith VTE diagnosis (Actual) Outcome: Progressing as expected Problem: Infection Risk Goal: Absence of infection Outcome: Progressing as expected Problem: Glucose control Goal: Glucose level within specified parameters Outcome: Progressing as expected 2022-11-19 Formatting of this note might be differe nt from the original. Rica Hodge RN [facility] 17:51:18-00:00 Pt report given to Marisol in co dsurg. Patient vss. Alert and escorted to 2216 via w/c by transport technician Electronically signed by Rica Hodge RN at 0 11/19/2022 5:52 PM T 2022-11-19 [facility] 14:01:22-00:00 Patient CO of upset stomach for past week, denies any N/V or diarrhea. States his stomach just feels uncomfortable every time he eats. Patient also states he feels weak from not eating very much. 2022-11-19 Associated Order(s): EKG-12 Lead ROUTINE ONCE [facility] 13:56:00-00:00 Pre-Procedure Diagnose(s): G eneralized abdominal pain; Weight loss Post-Procedure Diagnose(s): Generalized abdomina l pain; Weight loss Formatting of this note is different from the or iginal. Demographics Patient Name: Génesis Hill Date of : 1960 62 year old Treatment Room: [place] [address] Primary Care Physician: No primary care provider on file. Pre Hospital Care Patient Escorted by: Family [5] Mode of Arrival: Personal means [1] EMS Treatment Prior to ED Arrival: ED Events Date/Time Event User Comments 11/19/221400 Medical Screening Begins ABEBE ORTEGA MD -- 11/19/221400 First Provider Evaluation ABEBE GOYAL -- Chief complaint Chief Complaint Patient presents with Abdominal Pain ED Triage Notes Yeyo Green, RN 11/19/2022 14:03 Patient CO of upset stomach for past week, denies any N/V or diarrhea. States his stomach just feels uncomfortable every time he eats. Patient also states he feels weak from not eating very much. Chief Complaint Patient presents with Abdominal Pain History of present illness HPI 62 yo man comes to the ED re ferred from PCP for evaluation of weakness, abdominal pain, weight loss and decreased appetite worsening over the last few weeks. Today patient also reports chest discomfort. He reports fever, chills. N o SOB, cough, congestion or sore throat. H/o HLD on medications. He works in [employer]. Past Medical and Social History History reviewed. No pertinent past medical hist ory. Social History Tobacco Use Smoking status: Never Smokeless tobacco: Never Past Surgical History History reviewed. No pertinent surgical history. Medications Medications enoxaparin (LOVENOX) injection 40 mg (40 mg Subc utaneous Given 11/19/221842) acetaminophen (TYLENOL) tablet 650 mg (has no ad ministration in time range) aspirin chewable tablet 81 mg (has no administra tion in time range) ondansetron (ZOFRAN (PF)) in jection 4 mg (4 mg Slow IV Push Given 11/19/221842) dextrose 50 % in water (D50W ) injection 25 mL (has no administration in time range) glucagon (GLUCAGEN DIAGNOSTI C KIT) injection 1 mg (has no administration in time range) Sliding Scale Insulin - Lisp ro (HumaLOG) (0 Units Subcutaneous Held 11/19/22 2100) NaCl 0.9% (NS) bolus infusion 1,000 mL ( 0 mL IV Infusion Stopped 11/19/22 1723) iopamidol (ISOVUE 370-500 mL ) injection 65 mL (65 mL Intravenous Given 11/19/22 1549) Allergies No Known Allergies Review of Systems Review of Systems Constitutional: Positive for appetite change, chills, fever and unexpected weight change. HENT: Negative. Eyes: Negative. Respiratory: Negative. Breasts: Negative. Cardiovascular: Negative. Gastrointestinal: Negative. Genitourinary: Negative. Musculoskeletal: Negative. Skin: Negative. Neurological: Positive for weakness. Psychiatric/Behavioral: Negative. Endocrine: Endocrine negative Physical Exam BP 138/76 | Pulse 62 | Temp 36.8 ?C (98.2 ?F) | Resp 16 | Ht 1.651 m (5' 5") | Wt 56.7 kg (125 lb) | SpO2 98% | BMI 20.80 kg/m? Physical Exam Vitals and nursing note reviewed. Constitutional: General: He is not in acute distress. Appearance: He is well-developed. He is not ill -appearing. HENT: Head: Normocephalic and atraumatic. Right Ear: Ear canal and external ear normal. Left Ear: Ear canal and external ear normal. Nose: Nose normal. No congestion or rhinorrhea. Mouth/Throat: Mouth: Mucous membranes are moist. Pharynx: Oropharynx is halie r. No oropharyngeal exudate or posterior oropharyngeal erythema. Eyes: General: Right eye: No discharge. Left eye: No discharge. Conjunctiva/sclera: Conjunctivae normal. Pupils: Pupils are equal, round, and reactive t o light. Cardiovascular: Rate and Rhythm: Normal rate and regular rhythm . Pulses: Normal pulses. Heart sounds: Normal heart sounds. No murmur he percy. No friction rub. Pulmonary: Effort: Pulmonary effort is normal. No respirat ory distress. Breath sounds: Normal breath sounds. No stridor . No wheezing or rhonchi. Abdominal: General: Bowel sounds are normal. There is no d istension. Palpations: Abdomen is soft. There is no mass. Tenderness: There is no abdominal tenderness. Hernia: No hernia is present. Musculoskeletal: General: No swelling, tende rness, deformity or signs of injury. Normal range of motion. Cervical back: Normal range of motion and neck supple. No rigidity or tenderness. Skin: General: Skin is warm and dry. Capillary Refill: Capillary refill takes less t marrero 2 seconds. Coloration: Skin is not jaundiced or pale. Findings: No bruising or erythema. Neurological: General: No focal deficit present. Mental Status: He is alert and oriented to pers on, place, and time. Cranial Nerves: No cranial nerve deficit. Sensory: No sensory deficit. Motor: No weakness. Coordination: Coordination normal. Psychiatric: Mood and Affect: Mood normal. Behavior: Behavior normal. Thought Content: Thought content normal. Judgment: Judgment normal. Labs and Studies Lab Results CBC WITH DIFF - Abnormal Result Value Ref Range WBC 11.88 (*) 4.20 - 10.70 10*3/?L RBC 3.46 (*) 4.26 - 5.52 10*6/?L HGB 11.0 (*) 12.2 - 16.4 g/dL HCT 32.3 (*) 38.4 - 49.3 % MCV 93.4 81.7 - 95.6 fL MCH 31.8 26.1 - 32.7 pg MCHC 34.1 31.2 - 35.0 g/dL RDW-SD 46.6 38.5 - 51.6 fL RDW-CV 13.7 12.1 - 15.4 % PLT 454 (*) 150 - 328 10*3/?L MPV 10.7 9.8 - 13.0 fL NRBC/100 WBC 0.0 0.0 - 10.0 /100 WBCs NRBC x10^3 <0.01 10*3/?L GRAN MAT (NEUT) % 67.0 % IMM GRAN % 0.30 % LYMPH % 19.0 % MONO % 10.1 % EOS % 2.8 % BASO % 0.8 % GRAN MAT x10^3(ANC) 7.95 (*) 1.99 - 6.95 10*3/u L IMM GRAN x10^3 0.04 0.00 - 0.06 10*3/uL LYMPH x10^3 2.26 1.09 - 3.23 10*3/uL MONO x10^3 1.20 (*) 0.36 - 1.02 10*3/uL EOS x10^3 0.33 0.06 - 0.53 10*3/uL BASO x10^3 0.10 (*) 0.01 - 0.09 10*3/uL COMP. METABOLIC PANEL (97947) - Abnormal NA 139 135 - 145 mmol/L K 4.1 3.5 - 5.0 mmol/L CL 104 98 - 108 mmol/L CO2 TOTAL 25 23 - 31 mmol/L AGAP 10 2 - 16 BUN 23 7 - 23 mg/dL GLUCOSE 73 70 - 110 mg/dL CREATININE 1.57 (*) 0.60 - 1.25 mg/dL TOTAL BILI 0.6 0.1 - 1.1 mg/dL CALCIUM 8.9 8.6 - 10.6 mg/dL T PROTEIN 8.0 6.3 - 8.2 g/dL ALBUMIN 3.6 3.5 - 5.0 g/dL ALK PHOS 130 (*) 34 - 122 U/L ALTv 64 (*) 5 - 50 U/L AST(SGOT) 49 (*) 13 - 40 U/L eGFR 45.1 mL/min/1.73m2 LIPASE - Abnormal LIPASE 498 (*) 0 - 220 U/L URINALYSIS - Abnormal APPEARANCE Cloudy (*) Clear COLOR Nancy (*) Yellow PH 5.0 4.8 - 8.0 SP GRAVITY 1.013 1.003 - 1.030 GLU U QUAL Normal Normal BLOOD Negative Negative KETONES Negative Negative PROTEIN Negative Negative UROBILIN Normal Normal BILIRUBIN Negative Negative NITRITE Negative Negative LEUK DANIEL Negative Negative RBC/HPF 3 0 - 3 HPF WBC/HPF 4 0 - 5 HPF BACTERIA Few (*) Negative MUCOUS Slight (*) Negative LPF N-TERMINAL PRO-BNP - Abnormal NT-proBNP 2,420 (*) <=125 pg/mL TROPONIN I - Normal TROPONIN I 0.013 <=0.034 ng/mL COVID-19 (ID NOW RAPID TESTING) - Normal SARS-CoV-2 Rapid ID NOW Not Detected Not Detect ed CT ABDOMEN PELVIS W CONTRAST Final Result ORDERING PROVIDER: ABEBE ORTEGA HISTORY: Abdominal distension TECHNIQUE: Contiguous axial CT images of the abd omen and pelvis performed after administration of IV contrast. Coronal and sagittal reformats generated. CT performed according to ALARA (as l ow as reasonably achievable) principles. TECHNICAL LIMITATIONS: None. COMPARISON: None. FINDINGS: Included lung bases: Mild bibasilar linear atele ctasis/scar with superimposed dependent atelectasis. No basilar c onsolidation or pleural effusion. Normal heart size. Trace inferior vidal cardial fluid. Liver: Unremarkable. Gallbladder and Bile Ducts: Unremarkable gallbla dder. No biliary ductal dilation. Pancreas: Unremarkable CT appearance. Spleen: Unremarkable. Adrenals: No discrete nodule. Kidneys and Ureters: Unremarkable kidneys. No ur eteral stones or hydroureteronephrosis. GI Tract: Unremarkable appearance of the stomach , small and large bowel. Unremarkable appendix. Pelvis: Apparent mild circumferential urinary bl adder wall thickening is attributed to underdistension. Prostate is not s ignificantly enlarged and contains several coarse calcifications. Mesentery/Peritoneum: No free air. Fluid: Trace pelvic free fluid is nonspecific bu t considered an unusual finding for a male. Lymph nodes: No pathologic adenopathy. Vasculature: Scattered atherosclerotic vascular calcifications. No abdominal aortic aneurysm. Bones: No acute osseous abnormality. Chronic cinda ateral L5 pars defects with grade 1 spondylolisthesis. IMPRESSION 1. No acute process identified. No bowel obstruc tion. 2. Atherosclerosis. 3. Chronic L5 pars defects with grade 1 spondylo listhesis. RL: [id number] Electronically signed by Jose Sims DO at 023 4:34 PM XR CHEST 1 VW Final Result Indication: chest pain Comparison: None RL: [id number] ORDERING PHYSICIAN: ABEBE ORTEGA TECHNIQUE: Single view of the chest. FINDINGS: The lungs are clear. Cardiomediastinal silhouette is within normal limits. No pneumothorax. The bony structu res are intact. IMPRESSION 1. No acute cardiopulmonary disease. Electronically signed by Sharan Wilson at 2022 4:18 PM Orders and Treatments Orders Placed This Encounter Procedures CT ABDOMEN PELVIS W CONTRAST XR CHEST 1 VW CBC WITH DIFF COMP. METABOLIC PANEL (73550) LIPASE URINALYSIS TROPONIN I N-TERMINAL PRO-BNP COVID-19 (ID NOW TESTING) LAB ONLY COVID INTERPRETATION POCT GLUCOSE (AUTOMATED) Glycosylated Hemoglobin (A1C) POCT Glucose (Age >30 Days) Troponin I POCT GLUCOSE (AUTOMATED) Consult Cardiology Orders Placed This Encounter Medications NaCl 0.9% (NS) bolus infusion 1,000 mL iopamidol (ISOVUE 370-500 mL) injection 65 mL enoxaparin (LOVENOX) injection 40 mg acetaminophen (TYLENOL) tablet 650 mg aspirin chewable tablet 81 mg atorvastatin 10 mg tablet ondansetron (ZOFRAN (PF)) injection 4 mg dextrose 50 % in water (D50W) injection 25 mL glucagon (GLUCAGEN DIAGNOSTIC KIT) injection 1 mg Sliding Scale Insulin - Lispro (HumaLOG) Current Discharge Medication List STOP taking these medications atorvastatin 10 mg tablet Comments: Reason for Stopping: Procedures EKG-12 Lead ROUTINE ONCE Date/Time: 11/19/2022 5:54 PM Performed by: Abebe Ortega MD Authorized by: Abebe Ortega MD ECG reviewed by ED Physician in the absence of a consulting actuary: yes Previous ECG: Previous ECG: Unavailable Interpretation: Interpretation: non-specific Rate: ECG rate: 52 ECG rate assessment: normal Rhythm: Rhythm: sinus rhythm Ectopy: Ectopy: none QRS: QRS axis: Left QRS intervals: Normal QRS conduction: LBBB ST segments: ST segments: Normal T waves: T waves: normal Q waves: Abnormal Q-waves: not present MDM & Notes Patient was evaluated for an emergency medical condition related to Abdominal Pain . History and/or review of systems is limited by:H istory limited: None. Medical Decision Making 62 yo man comes to the ED re ferred from PCP for evaluation of weakness, abdominal pain, weight loss and decreased appetite worsening over the last few weeks. Today patient also reports chest discomfort. He reports fever, chills. N o SOB, cough, congestion or sore throat. H/o HLD on medications. 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 DDX: Weakness Weight loss Appetite change Problems Addressed: Generalized abdominal pain: chronic illness or injury with exacerbation, progression, or side effects of treatment Weight loss: chronic illness or injury with exacerbation, progression, or side effects of treatment Amount and/or Complexity of Data Reviewed Labs: ordered. Decision-making details documente d in ED Course. Radiology: ordered and indep endent interpretation performed. Decision-making details documented in ED Course. ECG/medicine tests: ordered and independent interpretation performed. Decision- making details documented in ED Course. Risk Prescription drug management. Risk Details: LBBB Elevated BNP, weakness and weight loss Mild chest discomfort earlier in the day. Discussed with hospitalist for observation. Diagnosis/Impression as of 11/19/222155 Generalized abdominal pain Weight loss LBBB (left bundle branch block) Case discussed with: none Barriers & Social Determinants of Healthcare: Limitations to patient care and compliance: none . Assessment: Génesis Hill is a 62 yea r old male presenting for multiple complaint(s) listed below and mentioned within the note. The patient has acute condition(s). Follow up with providers listed below for furt her evaluation and managemen t. Return precautions given if symptoms worsen as documented in the discharge instructions. History, physical exam findi ngs, results of visit, differential diagnosis, medication regimens and plan of future care have been considered. Additional MDM may be found in the ED course. Differential di agnosis considered and final disposition made based on information gathered during evaluation and may not be completely ruled out or specifically listed. Vital signs were rechecked before final disposition and determined to be stable. Diagnoses ICD-10-CM 1. Generalized abdominal pain R10.84 2. Weight loss R63.4 3. LBBB (left bundle branch block) I44.7 Disposition and Condition ED Disposition ED Disposition Admit - Observation Condition -- Comment Is (or was) this a planned re-admission?: No Treatment Team: [facility] [[id number]] Is this patient COVID positive or a patient und er investigation (PUI)?: No Current Discharge Medication List STOP taking these medications atorvastatin 10 mg tablet Comments: Reason for Stopping: Abebe Ortega MD, FACEP, FAAEM [facility] #[id number] Abebe Ortega MD 11/19/22 2157 Electronically signed by Abebe Ortega MD at 0 11/19/2022 9:56 PM CDT
[2022-11-26 11:20] LABS: Absolute Lymphocytes (CBC) 3.4 K/uL (0.7-4.9); Hematocrit 33.6 % (39.6-49.0); Lymphocytes % 33.1 % (15.3-44.8); MCV 94.3 fL (80-100); RBC Red Blood Cell Count 3.56 M/uL (4.33-5.43)
--- NOTE | 2022-11-26 11:22 | RAD REPORT ---
EXAM DESCRIPTION: RAD - Chest Single View - 11/26/2022 11:17 am CLINICAL HISTORY: Hypotension Chest pain. COMPARISON: No comparisons FINDINGS: Portable technique limits examination quality. The lungs are grossly clear. The heart is normal in size. No displaced fractures. IMPRESSION: No acute intrathoracic process suspected.
[2022-11-26 11:25] LABS: Protime INR 1.8
[2022-11-26 11:40] LABS: Albumin 2.7 g/dL (3.4-5.0); Bilirubin Direct 0.1 mg/dL (0-0.2); Bilirubin Indirect, Calculated 0.3 mg/dL (0.2-0.8); Bilirubin Total 0.4 mg/dL (0.2-1.0); Potassium 4.3 mEq/L (3.5-5.1); Protein, Total 7.5 g/dL (6.4-8.2); Troponin High Sensitivity 3.9 pg/mL (<58.9)
--- NOTE | 2022-11-26 11:57 | EDPHYS ---
Physician Documentation [facility] Name: Jung Nunez Age: 62 yrs Sex: Male : 1960 Arrival Date: 11/26/2022 Time: 10:52 Bed 4 Private MD: ED Physician Sudhir Martin HPI: 11/26 11:13 This 62 yrs old Male presents to ER via EMS with complaints of Near Syncope. sp3 11:13 62-year-old male with history of hyperlipidemia and recent admission to [facility] for "fluid sp3 around the heart" was placed on Lasix and discharged now presents to the ED for chief complaint near syncope and dizziness and generalized weakness. EMS found patient with initial blood pressure in the 70s systolically with heart rate in the 50s. Normal saline was started and patient's blood pressure steadily gone up into the 90s and low 100s now in the ED. Patient denies any other symptoms except generalized weakness. He currently denies headache, neck pain, chest pain, shortness of breath, abdominal pain, vomiting, diarrhea, focal neurodeficit, or any other signs or symptoms at this time.. Historical: - Allergies: 11:03 No Known Allergies; iw - Home Meds: 11:03 Lasix 20 mg Oral tablet daily [Active]; pantoprazole 40 mg oral tablet, delayed release iw (enteric coated) daily [Active]; atorvastatin 10 mg oral tablet daily [Active]; - PMHx: 11:11 Hypercholesterolemia; aa5 - PSHx: 11:11 skin cancer removed; aa5 - Immunization history:: Adult Immunizations up to date. - Social history:: Smoking status: unknown. ROS: 11:15 Constitutional: Negative for fever, chills, and weight loss, Eyes: Negative for injury, sp3 pain, redness, and discharge, ENT: Negative for injury, pain, and discharge, Neck: Negative for injury, pain, and swelling, Respiratory: Negative for shortness of breath, cough, wheezing, and pleuritic chest pain, Back: Negative for injury and pain, MS/Extremity: Negative for injury and deformity, Skin: Negative for injury, rash, and discoloration, Psych: Negative for depression, anxiety, suicide ideation, homicidal ideation, and hallucinations, Allergy/Immunology: Negative for hives, rash, and allergies, Endocrine: Negative for neck swelling, polydipsia, polyuria, polyphagia, and marked weight changes. 11:15 All other systems are negative. Exam: 11:15 Head/Face: Normocephalic, atraumatic. Eyes: Pupils equal round and reactive to light, sp3 extra-ocular motions intact. Lids and lashes normal. Conjunctiva and sclera are non-icteric and not injected. Cornea within normal limits. Periorbital areas with no swelling, redness, or edema. ENT: Nares patent. No nasal discharge, no septal abnormalities noted. External auditory canals are clear. Oropharynx with no redness, swelling, or masses, exudates, or evidence of obstruction, uvula midline. Mucous membranes moist. Neck: Trachea midline, no thyromegaly or masses palpated, and no cervical lymphadenopathy. Supple, full range of motion without nuchal rigidity, or vertebral point tenderness. No Meningismus. Chest/axilla: Normal chest wall appearance and motion. Nontender with no deformity. No lesions are appreciated. Cardiovascular: Regular rate and rhythm with a normal S1 and S2. No gallops, murmurs, or rubs. Normal PMI, no JVD. No pulse deficits. Respiratory: Lungs have equal breath sounds bilaterally, clear to auscultation and percussion. No rales, rhonchi or wheezes noted. No increased work of breathing, no retractions or nasal flaring. Abdomen/GI: Soft, non-tender, with normal bowel sounds. No distension or tympany. No guarding or rebound. No evidence of tenderness throughout. Skin: Warm, dry with normal turgor. Normal color with no rashes, no lesions, and no evidence of cellulitis. Neuro: Awake and alert, GCS 15, oriented to person, place, time, and situation. Cranial nerves II-XII grossly intact. Motor strength 5/5 in all extremities. Sensory grossly intact. Cerebellar exam normal. Normal gait. Psych: Awake, alert, with orientation to person, place and time. Behavior, mood, and affect are within normal limits. 11:15 Constitutional: The patient appears Patient is pale and generally weak. His heart rate is in the 50s and blood pressure is now 120/75. 12:46 ECG was reviewed by the Attending Physician. EKG demonstrates normal sinus rhythm 64 sp3 bpm with normal intervals, normal axis, nonspecific diffuse ST/T-segment's without evidence of acute ischemia. There is no obvious evidence of electrical alternans or any other indication of pericardial effusion at this time. Vital Signs: 11:05 BP 122 / 61; Pulse 54; Resp 20 S; Temp 97.1(TE); Pulse Ox 98% on R/A; aa5 11:14 BP 134 / 77; Pulse 56; Resp 19 S; Pulse Ox 100% on R/A; aa5 12:00 BP 136 / 71; Pulse 64; Resp 16; Pulse Ox 100% on R/A; eh3 12:30 BP 108 / 70; Pulse 57; Resp 14; Pulse Ox 100% on R/A; eh3 13:00 BP 113 / 67; Pulse 58; Resp 14; Pulse Ox 100% on R/A; cm10 13:30 BP 112 / 71; Pulse 61; Resp 15; Pulse Ox 100% on R/A; cm10 14:00 BP 122 / 105; Pulse 58; Resp 15; Pulse Ox 100% on R/A; eh3 14:30 BP 131 / 73; Pulse 63; Resp 14; Pulse Ox 99% on R/A; eh3 15:00 BP 117 / 69; Pulse 58; Resp 14; Pulse Ox 100% on R/A; cm10 15:30 BP 138 / 75; Pulse 62; Resp 13; Pulse Ox 100% on R/A; cm10 MDM: 10:55 Patient medically screened. sp3 11:16 Data reviewed: vital signs, nurses notes, EMS record, old medical records, lab test sp3 result(s), EKG, radiologic studies. ED course: 62-year-old male with hyperlipidemia and recent admission for unknown exact etiology presents to the ED for near syncope, hypotension and mild bradycardia. Patient's vital signs of improved but he still appears weak. We will attempt to get echo cardiogram due to patient stating that he had "fluid around the heart". He denies getting any operative procedure including pericardial window and states that "they fixed it with pills". Patient is a patient sees Dr. Arevalo as PCP and will likely be admitted under him.. 11:55 ED course: Patient with elevated BUN/creatinine consistent with prerenal azotemia. Will sp3 admit to Dr. Arevalo and start slow IV fluids. Echocardiogram is pending.. 12:00 Special discussion:. ED course: Patient is requesting transfer to [facility] due to insurance sp3 reasons. We will attempt diet and if they are on diversion then we will admit here.. 11/26 10:56 Order name: Basic Metabolic Panel; Complete Time: 11:53 sp3 11/26 10:56 Order name: CBC with Diff; Complete Time: 11:53 sp3 11/26 10:56 Order name: LFT's; Complete Time: 11:53 sp3 11/26 10:56 Order name: Magnesium; Complete Time: 11:53 sp3 11/26 10:56 Order name: NT PRO-BNP; Complete Time: 11:53 sp3 11/26 10:56 Order name: PT-INR; Complete Time: 11:53 sp3 11/26 10:56 Order name: Troponin HS; Complete Time: 11:53 sp3 11/26 10:56 Order name: XRAY Chest (1 view); Complete Time: 11:53 sp3 11/26 12:14 Order name: Echo with Doppler [facility] 11/26 10:56 Order name: EKG; Complete Time: 10:57 sp3 11/26 13:49 Order name: Diet Heart Healthy; Complete Time: 13:50 em1 11/26 10:56 Order name: Cardiac monitoring; Complete Time: 11:00 sp3 11/26 10:56 Order name: EKG - Nurse/Tech; Complete Time: 11:10 sp3 11/26 10:56 Order name: IV Saline Lock; Complete Time: 11:00 sp3 11/26 10:56 Order name: Labs collected and sent; Complete Time: 11:10 sp3 11/26 10:56 Order name: O2 Per Protocol; Complete Time: 11:03 sp3 11/26 10:56 Order name: O2 Sat Monitoring; Complete Time: 11:03 sp3 Administered Medications: No medications were administered Disposition Summary: 11/26/22 12:01 Transfer Ordered Transfer Location: [facility]-System sp3 Reason: Higher level of care sp3 Condition: Stable(11/26/22 12:01) sp3 Problem: new(11/26/22 12:01) sp3 Symptoms: have worsened(11/26/22 12:01) sp3 Accepting Physician: [facility](11/26/22 15:45) cm10 Diagnosis - Acute kidney injury, dehydration, near syncope sp3 Forms: - Medication Reconciliation Form sp3 - SBAR form sp3 Signatures: Dispatcher [employer] EDLou Schmidt, RN RN iw Kaia Park RN RN aa5 Sudhir Martin MD MD sp3 Marlen Blankenship RN RN eh3 Laverne Gordillo, RN RN cm10 Corrections: (The following items were deleted from the chart) 11:41 11:02 EC Echo Doppler W/Color Flow+ECHO.RAD.BRZ ordered. EDID EDMS 12:00 11:57 Observation sp3 sp3 12:00 11:57 Samuel Arevalo sp3 sp3 12:00 11:57 Telemetry/MedSurg (observation) sp3 sp3 12:00 11:57 Stable sp3 sp3 12:00 11:57 new sp3 sp3 12:00 11:57 have worsened sp3 sp3 12:00 11:57 Standard sp3 sp3 12:00 11:57 sp3 sp3 12:00 11:57 Near syncope, generalized weakness, acute kidney injury, dehydration sp3 sp3 15:45 12:01 [facility] sp3 cm10
--- NOTE | 2022-11-26 11:57 | ER ---
[facility] Name: Jung Nunez Age: 62 yrs Sex: Male : 1960 Arrival Date: 11/26/2022 Time: 10:52 Bed 4 Private MD: Diagnosis: Acute kidney injury, dehydration, near syncope Presentation: 11/26 10:59 Chief complaint: EMS states: was outside, started to feel bad, he fell, no LOC , was iw 70/40 on scene, pale diaphoretic, dizzy nauseated, was here last week for an outpatient CT, he had to be sent to [facility] due to his insurance, was told he had fluid around his heart and is now on Lasix. 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 10:59 Acuity: JUAN MANUEL 2 iw 11:05 Coronavirus screen: At this time, the client does not indicate any symptoms associated aa5 with coronavirus-19. Ebola Screen: Patient denies travel to an Ebola-affected area in the 21 days before illness onset. Initial Sepsis Screen: Does the patient meet any 2 criteria? No. Patient's initial sepsis screen is negative. Does the patient have a suspected source of infection? No. Patient's initial sepsis screen is negative. Risk Assessment: Do you want to hurt yourself or someone else? Patient reports no desire to harm self or others. Onset of symptoms was November 26, 2022. 11:05 Method Of Arrival: EMS: [facility] aa5 Historical: - Allergies: 11:03 No Known Allergies; iw - Home Meds: 11:03 Lasix 20 mg Oral tablet daily [Active]; pantoprazole 40 mg oral tablet, delayed release iw (enteric coated) daily [Active]; atorvastatin 10 mg oral tablet daily [Active]; - PMHx: 11:11 Hypercholesterolemia; aa5 - PSHx: 11:11 skin cancer removed; aa5 - Immunization history:: Adult Immunizations up to date. - Social history:: Smoking status: unknown. Screenin:13 [facility] ED Fall Risk Assessment (Adult) History of falling in the last 3 months, aa5 including since admission Yes- physiologic fall (2 pts) Confusion or Disorientation No (0 pts) Intoxicated or Sedated No (0 pts) Impaired Gait No (0 pts) Mobility Assist Device Used No (0 pt) Altered Elimination No (0 pt) Score/Fall Risk Level 0 - 2 = Low Risk Oriented to surroundings, Maintained a safe environment, Educated pt \T\ family on fall prevention, incl call for assistance when getting out of bed. Abuse screen: Denies threats or abuse. Nutritional screening: No deficits noted. Tuberculosis screening: No symptoms or risk factors identified. Assessment: 11:05 General: Appears uncomfortable, Behavior is calm, cooperative, Pt noted to be shaking, aa5 pt reports he is cold. Extra warm blankets provided for pt. . Pain: Denies pain. Neuro: Level of Consciousness is awake, alert, obeys commands, Oriented to person, place, time, situation, Reports a syncopal episode. Cardiovascular: Heart tones S1 S2 present Rhythm is sinus bradycardia. Respiratory: Airway is patent Respiratory effort is even, unlabored, Respiratory pattern is regular, symmetrical, Breath sounds are clear bilaterally. GI: No signs and/or symptoms were reported involving the gastrointestinal system. : No signs and/or symptoms were reported regarding the genitourinary system. EENT: No signs and/or symptoms were reported regarding the EENT system. Derm: Skin is pink, warm \T\ dry. Musculoskeletal: Range of motion: intact in all extremities. 12:00 Reassessment: Patient appears in no apparent distress at this time. Patient and/or 3 family updated on plan of care and expected duration. Pain level reassessed. Patient is alert, oriented x 3, equal unlabored respirations, skin warm/dry/pink. 13:00 Reassessment: Patient appears in no apparent distress at this time. Patient and/or eh3 family updated on plan of care and expected duration. Pain level reassessed. Patient is alert, oriented x 3, equal unlabored respirations, skin warm/dry/pink. 14:00 Reassessment: Patient appears in no apparent distress at this time. Patient and/or eh3 family updated on plan of care and expected duration. Pain level reassessed. Patient is alert, oriented x 3, equal unlabored respirations, skin warm/dry/pink. 14:59 Reassessment: Failed attempt to call report to [facility], nurse Swathi is with another pt. [facility] Vital Signs: 11:05 BP 122 / 61; Pulse 54; Resp 20 S; Temp 97.1(TE); Pulse Ox 98% on R/A; aa5 11:14 BP 134 / 77; Pulse 56; Resp 19 S; Pulse Ox 100% on R/A; aa5 12:00 BP 136 / 71; Pulse 64; Resp 16; Pulse Ox 100% on R/A; eh3 12:30 BP 108 / 70; Pulse 57; Resp 14; Pulse Ox 100% on R/A; eh3 13:00 BP 113 / 67; Pulse 58; Resp 14; Pulse Ox 100% on R/A; cm10 13:30 BP 112 / 71; Pulse 61; Resp 15; Pulse Ox 100% on R/A; cm10 14:00 BP 122 / 105; Pulse 58; Resp 15; Pulse Ox 100% on R/A; eh3 14:30 BP 131 / 73; Pulse 63; Resp 14; Pulse Ox 99% on R/A; eh3 15:00 BP 117 / 69; Pulse 58; Resp 14; Pulse Ox 100% on R/A; cm10 15:30 BP 138 / 75; Pulse 62; Resp 13; Pulse Ox 100% on R/A; cm10 ED Course: 10:53 Patient arrived in ED. iw 10:55 Sudhir Martin MD is Attending Physician. sp3 11:02 Triage completed. iw 11:04 Arm band placed on. iw 11:05 Patient has correct armband on for positive identification. Bed in low position. Call aa5 light in reach. Side rails up X2. Adult w/ patient. Client placed on continuous cardiac and pulse oximetry monitoring. NIBP monitoring applied. Warm blanket given. 11:07 Maintain EMS IV. Dressing intact. Good blood return noted. Site clean \T\ dry. Gauge \T\ iw site: 18 LAC. 11:10 Kaia Park, BRYNN is Primary Nurse. aa5 11:19 XRAY Chest (1 view) In Process Unspecified. EDMS 11:56 Samuel Arevalo MD is Hospitalizing Provider. sp3 12:00 Report given to BRYNN Galloway. aa5 12:00 Provided Education on: N/A. eh3 15:42 No provider procedures requiring assistance completed. Patient transferred, IV remains cm10 in place. 15:43 Report given to [facility] who assumes care of pt. Pt A\T\Ox4, cm10 respirations even and unlabored. Pt stable for transport to [facility] at this time. Administered Medications: No medications were administered Medication: 15:45 VIS not applicable for this client. cm10 Outcome: 11:57 Decision to Hospitalize by Provider. sp3 12:01 ER care complete, transfer ordered by . sp3 15:42 Transferred by ground EMS [facility] to [facility], cm10 Transfer form completed. X-rays sent w/ patient. 15:42 Condition: good 15:42 Instructed on the need for transfer. 15:45 Patient left the ED. cm10 Signatures: Dispatcher [employer] EDMS Lou Soriano RN RN Kaia Whitaker RN RN aa5 Sudhir Martin MD MD sp3 Marlen Blankenship, RN RN 3 Laverne Gordillo RN RN cm10 Corrections: (The following items were deleted from the chart) 11:12 11:05 Pulse 54bpm; Resp 16bpm; Pulse Ox 100% RA; iw aa5 11:12 11:05 Temp 97.1F Temporal; aa5 aa5 11:17 11:05 General: Appears uncomfortable, Behavior is calm, cooperative, aa5 aa5
--- NOTE | 2022-11-26 14:21 | ECHO ---
HEIGHT: ft in WEIGHT: lb oz DATE OF STUDY: 11/26/[address]: Sudhir Martin 2-DIMENSIONAL: YES M.MODE: YES DOPPLER: YES COLOR FLOW: YES TDS: PORTABLE: YES DEFINITY: BUBBLE STUDY: DIAGNOSIS: NEAR SYNCOPE CARDIAC HISTORY: CATHERIZATION: NO SURGERY: NO PROSTHETIC VALVE: NO PACEMAKER: NO MEASUREMENTS (cm) DIASTOLIC (NORMALS) SYSTOLIC (NORMALS) IVSd 1.0 (0.6-1.2) LA Diam 2.4 (1.9-4.0) LVEF 75% LVIDd 3.7 (3.5-5.7) LVIDs 2.1 (2.0-3.5) %FS 43% LVPWd 1.0 (0.6-1.2) Ao Diam 2.5 (2.0-3.7) 2 DIMENSIONAL ASSESSMENT: RIGHT ATRIUM: NORMAL LEFT ATRIUM: NORMAL RIGHT VENTRICLE: NORMAL LEFT VENTRICLE: NORMAL TRICUSPID VALVE: NORMAL MITRAL VALVE: NORMAL PULMONIC VALVE: NORMAL AORTIC VALVE: NORMAL PERICARDIAL EFFUSION: NONE AORTIC ROOT: NORMAL LEFT VENTRICULAR WALL MOTION: NORMAL DOPPLER/COLOR FLOW: MILD MITRAL REGURGITATION COMMENTS: 1. NORMAL LEFT VENTRICULAR EJECTION FRACTION 60-65% 2. NORMAL WALL MOTION 3. NORMAL DIASTOLIC FUNCTION 4. MILD MITRAL REGURGITATION TECHNOLOGIST: POP SANDERS
[2022-11-26 15:50] VITALS: TEMP 97.1
[2022-11-26 16:00] VITALS: O2SAT 100
[2022-11-26 16:01] VITALS: BP 138/75
--- NOTE | 2022-11-27 13:28 | EKG ---
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
== END 2022-11-26 15:45 | disposition short-term general hospital (02) ==
LOC: ER 10:52
DX: R55 Syncope and collapse (principal); N17.9 Acute kidney failure, unspecified; E86.0 Dehydration; E78.00 Pure hypercholesterolemia, unspecified
CPT/HCPCS: 36415; 71045; 80048; 80076; 83735; 83880; 84484; 85025; 85610; 93005; 93306; 99285